=== PATIENT | male | born 1985 | race Caucasian/White ===

== ENCOUNTER 2022-03-16 14:14 | Emergency (ER) | payer MEDICAID, SELFPAY ==
--- NOTE | ~2022-03-16 | CT_ITS ---
EXAMINATION: CT abdomen pelvis w con DATE: 03/16/2022 15:58 INDICATION: Rectal pain and swelling for one day TECHNIQUE: Computed tomography (CT) of the abdomen and pelvis was performed with 100 CC Omnipaque 300 intravenous contrast. Automated exposure control and iterative reconstruction technique were employe d. Exam dose: 526.99 mGy-cm total exam DLP. COMPARISON: None. FINDINGS: Examination is limited by prominent motion of the patient on axial images in the lower abdo men and motion of the patient on images through the lower pelvis and proximal thighs. There is suggestion of a subcutaneous abscess along the inferomedial aspect of the left gluteal fold, measuring up to 1.8 cm depth and 3.4 cm AP dimension. The lung bases are clear. Normal heart size. No pericardial or pleural effusion. 1.6 cm lateral segment left hepatic cyst. The liver, gallbladder, bile ducts, spleen, pancreas and pa ncreatic duct are otherwise unremarkable. Normal morphology of the adrenal glands. No renal mass lesion or scarring. 3 mm nonobstructing right renal calculus. 4 mm nonobstructing left renal calculus. No hydroureteronephrosis. Mild prostate enlargement and calcification. The urinary bladder is unremarkable. Normal caliber of the abdominal aorta. No intraperitoneal or retroperitoneal or pelvic mass lesion or adenopathy or ascites is evident. Moderate degenerative disease at L4-5 and L5-S1. IMPRESSION: Suggestion of a subcutaneous abscess along the inferomedial left gluteal fold; examinati on is limited in this area due to motion 1.6 cm left hepatic cyst Bilateral nonobstructing renal calculi Reviewed, dictated and finalized at [facility]. Reviewed, dictated and finalized at [facility]. IMPRESSION: Suggestion of a subcutaneous abscess along the inferomedial left g luteal fold; examination is limited in this area due to motion 1.6 cm left hepa tic cyst Bilateral nonobstructing renal calculi
[2022-03-16 14:17] VITALS: BP 141/91; PULSE 124; RESP 16; TEMP 36.8; O2SAT 99
--- NOTE | 2022-03-16 14:56 | ED.GENADULT ---
HPI - General Adult General Chief complaint: Skin/Abscess/Foreign Body Stated complaint: repors rectal abscess Time Seen by Provider: 03/16/22 14:23 History of Present Illness HPI narrative: 36-year-old male with no prior history of abscesses presenting to the emergency department for evaluation of rectal swelling that just started yesterday. Patient states 2 days ago he was having some left lower quadrant pain. Patient states yesterday he had onset of rectal pain. Patient describes rectal swelling approximately the size of an egg. Patient does have a history of IV drug use but has not used IV drugs in approximately 1 year. Related Data Allergies Allergy/AdvReac Type Severity Reaction Status Date / Time No Known Allergies Allergy Verified 03/16/22 15:17 Review of Systems Review of Systems: CONSTITUTIONAL: Denies fever, chills, or sweats. EYES: Denies visual changes, redness, or discharge. ENT: Denies rhinorrhea, congestion, sore throat, or otalgia. CARDIOVASCULAR: Denies chest pain, palpitations, or edema. RESPIRATORY: Denies cough or dyspnea. GASTROINTESTINAL: Rectal pain and swelling. See HPI GENITOURINARY: Denies dysuria or hematuria. SKIN: Denies rash or itching. MUSCULOSKELETAL: Denies back pain, joint pain, or myalgia. NEUROLOGIC: Denies headache, numbness, or weakness. Exam Narrative: APPEARANCE: Well appearing, no pain, no distress, well-nourished. HEAD: normocephalic, atraumatic. EYES: PERRLA/EOMI, conjunctivae clear. NOSE: Normal no drainage NECK: Supple. No adenopathy, no masses. RESPIRATORY: Airway patent, respirations nonlabored. Clear to auscultation bilaterally, no rales, rhonchi, wheezing. CARDIOVASCULAR: Regular rate and rhythm without murmurs rubs or gallops. ABDOMINAL: Soft, nontender, nondistended, normal bowel sounds Rectal: Nondraining danish anal abscess MUSCULOSKELETAL: Moves all extremities. Strength/ROM intact, No edema, No calf tenderness. NEURO: Alert. Cranial nerves II through XII intact. SKIN: Warm, dry. Normal Color Course Course Emergency Course: Patient was started on Cipro and Flagyl after the clinical exam. Patient CT did show an abscess?1.8 cm depth and 3.4 cm AP dimension. Abscess was drained as described in the procedure note. Patient did tolerate the procedure well and felt improved. Case was discussed with the surgeon, Dr. Rodriguez recommended not to do antibiotics. Patient to have his packing removed in 1 to 2 days and he should follow-up with surgery in about a week. Vital Signs Vital signs: Vital Signs Temperature 98.2 F 03/16/22 14:17 Pulse Rate 124 H 03/16/22 14:17 Respiratory Rate 16 03/16/22 14:17 Blood Pressure 141/91 H 03/16/22 14:17 Pulse Oximetry 99 03/16/22 14:17 Oxygen Delivery Room Air 03/16/22 14:17 Temperature 98.2 F 03/16/22 14:17 Pulse Rate 104 H 03/16/22 18:06 Respiratory Rate 20 03/16/22 18:06 Blood Pressure 125/76 03/16/22 18:06 Pulse Oximetry 100 03/16/22 18:06 Oxygen Delivery Room Air 03/16/22 14:17 Procedures Abscess I/D danish-rectal: Time of Incision: 16:53 Side (if applicable): left Local Anesthetic: lidocaine 1% Amount of anesthesia used (mL): 3 Technique: incised with #11 blade Irrigation: Yes Packing used?: iodoform I&D Results: Pus and Blood Medical Decision Making Vital Signs Vital Signs: Vital Signs Temperature 98.2 F 03/16/22 14:17 Pulse Rate 124 H 03/16/22 14:17 Respiratory Rate 16 03/16/22 14:17 Blood Pressure 141/91 H 03/16/22 14:17 Pulse Oximetry 99 03/16/22 14:17 Oxygen Delivery Room Air 03/16/22 14:17 Temperature 98.2 F 03/16/22 14:17 Pulse Rate 104 H 03/16/22 18:06 Respiratory Rate 20 03/16/22 18:06 Blood Pressure 125/76 03/16/22 18:06 Pulse Oximetry 100 03/16/22 18:06 Oxygen Delivery Room Air 03/16/22 14:17 Lab Data Lab results reviewed: Yes I reviewed the patient's lab results. Re
[2022-03-16 15:05] LABS: Basophils Absolute Auto 0.1 K/mm3 (0.0-0.1); Basophils Percent Auto 0.7 % (0.2-1.2); Eosinophils Absolute Auto 0.2 K/mm3 (0-0.3); Eosinophils Percent Auto 1.3 % (0-4.4); Hematocrit 47.5 % (42.0-52.0); Hemoglobin 15.7 g/dL (14.0-18.0); Immature Granulocyte Absolute 0.07 K/mm3 (0.00-0.031); Immature Granulocyte Percent A 0.5 % (0-0.5); Lymphocytes Absolute Auto 2.12 K/mm3 (0.9-3.2); Lymphocytes Percent Auto 14.5 % (18.3-44.2); Mean Corpuscular HGB Conc 33.1 g/dl (32-36); Mean Corpuscular Volume 93.7 fl (80-100); Mean Platelet Volume 10.6 fl (7.4-10.4); Monocytes Absolute Auto 1.1 K/mm3 (0.1-0.6); Monocytes Percent Auto 7.5 % (2.6-8.5); Neutrophils Absolute Auto 11.1 K/mm3 (1.3-6.7); Neutrophils Percent Auto 75.5 % (45.5-73.1); Platelet Count Result 296 k/mm3 (150-375); Red Blood Count 5.07 M/mm3 (4.6-6.20); Red Cell Distribution Width 13.2 % (11.5-14.5); White Blood Count 14.7 K/mm3 (4.5-10.0)
[2022-03-16 15:18] LABS: Alanine Aminotransferase 49 U/L (6-50); Albumin Level 4.6 g/dL (3.5-5.1); Alkaline Phosphatase 118 U/L (38-126); Anion Gap 9 mmol/L (8-16); Aspartate Amino Transferase 39 U/L (17-59); Bilirubin,Total 0.8 mg/dL (0.2-1.3); Blood Urea Nitrogen 8 mg/dL (9-20); Calcium 9.2 mg/dL (8.4-10.2); Carbon Dioxide 25 mmol/L (22-30); Chloride 106 mmol/L (98-107); Estimated CRCL calculation 88 ml/min; Estimated Glomerular Filt Rate > 60; Glucose 117 mg/dL (65-110); Lactic Acid Reflex 1.9 mmol/L (0.7-2.0); Potassium 3.6 mmol/L (3.4-5.0); Sodium 140 mmol/L (137-145)
[2022-03-16] MEDS: metroNIDAZOLE 500 MG/ISO 100ML 500 MG/100 ML BAG 100 MG IVPB (15:24)
[2022-03-16 15:26] LABS: Appearance Urine Clear (Clear); Bilirubin Urine 1+ (Negative); Blood Urine Negative (Negative); Color Urine Yellow (Yellow); Glucose Urine UA Negative (Negative); Ketones Urine Negative (Negative); Leukocyte Esterase Ur Negative LEU/UL (Negative); Nitrate Urine Negative (Negative); Protein Urine Negative (Negative); Specific Grav Ur 1.015 (1.001-1.035); pH Urine 6.5 (5.0-9.0)
[2022-03-16] MEDS: HYDROmorphone HCL INJ (*CRX) 1 MG/ML SYR IV PUSH (15:32)
[2022-03-16 15:39] LABS: Bacteria Urine Trace /hpf; Mucus Urine Rare /lpf; RBC Urine 0-2 /hpf (0-2); WBC Urine 0-3 /hpf
[2022-03-16 15:40] LABS: Add Urine Microscopic? YES
[2022-03-16] MEDS: CIPROFLOXACIN 400 MG/D5W 200ML 200 ML 200 MG IVPB (16:26)
[2022-03-16] MEDS: LIDO 1%/EPINEPHRINE 1:100,000 20 ML VIAL 10 ML INFILTRATE (16:49)
[2022-03-16 18:06] VITALS: BP 125/76; PULSE 104; RESP 20; O2SAT 100
== END 2022-03-16 18:09 | disposition home or self-care (01) ==
PROVIDERS: Emergency Provider Emergency Medicine
DX: K61.1 Rectal abscess (principal)
CPT/HCPCS: 36415; 46040; 74177; 80053; 81001; 83605; 85025; 96365; 96366; 96367; 96375; 99284; J0744; J1170; Q9967

== ENCOUNTER 2022-05-28 02:34 | Emergency (ER) | payer MEDICAID, SELFPAY ==
[2022-05-28 02:31] VITALS: BP 121/94; PULSE 89; RESP 16; TEMP 36.2; O2SAT 98
--- NOTE | 2022-05-28 02:55 | PC.NURSE ---
Report received from CARMINA Garg. Assumed care of patient at this time.
[2022-05-28] MEDS: PANTOPRAZOLE 40 MG TABLET PO (03:21)
--- NOTE | 2022-05-28 04:31 | ED.GENADULT ---
HPI - General Adult General Chief complaint: Unspecified Stated complaint: SOB S/P CHOKING EPISODE Time Seen by Provider: 05/28/22 02:41 History of Present Illness HPI narrative: Patient is a 36-year-old male who presents ER with concerns of difficulty swallowing. Reports intermittently he will have an episode where he cannot swallow water and it will get stuck and he feels like he chokes on it and it comes out of his nose. Usually it sporadic and not big deal but its occurred more frequently over the last couple weeks. He was evaluated at [facility] and referred to a GI physician but is not made an appointment yet. He is on no medications. He has no issues with swallowing solid food. Denies fevers or chills or sweats. No difficulty breathing. Related Data Home Medications Medication Instructions Recorded Confirmed buprenorphine 8 mg-naloxone 2 mg 1 film buccal BID 05/28/22 sublingual film (Suboxone) Allergies Allergy/AdvReac Type Severity Reaction Status Date / Time No Known Allergies Allergy Verified 05/28/22 02:44 Review of Systems Constitutional: Constitutional: Denies anorexia, Denies chills and Denies fever(s) ENT: Denies dysphagia, Denies mouth pain and Denies sore throat Gastrointestinal: Gastrointestinal: Denies abdominal pain, Denies nausea and Denies vomiting PMFSH Past Medical History Medical History (Updated 05/28/22 @ 06:46 by Douglas Garces MD) Healthy adult male Surgical History Surgical History (Updated 05/28/22 @ 06:46 by Douglas Garces MD) No pertinent past surgical history Exam Narrative: GENERAL: Well-appearing, well-nourished, and in no acute distress. HEAD: Normocephalic, atraumatic. ENT: Mucous membranes moist. Normal-appearing posterior oropharynx. Tolerating oral secretions without issue. NECK: Supple. CHEST: Clear to auscultation. No respiratory distress. HEART: Regular rate and rhythm. Normal peripheral pulses. EXTREMITIES: Normal range of motion. No edema. NEURO: Alert and oriented x3. Course Course Emergency Course: Patient resting comfortably. Discussed need for follow-up with GI. Recommend PPI for home. Discussed possibility of esophageal dysmotility and eosinophilic esophagitis. Also discussed reflux esophagitis. Patient verbalized understanding. Unlikely stricture given symptoms. Vital Signs Vital signs: Vital Signs Temperature 97.2 F L 05/28/22 02:31 Pulse Rate 89 05/28/22 02:31 Respiratory Rate 16 05/28/22 02:31 Blood Pressure 121/94 H 05/28/22 02:31 Pulse Oximetry 98 05/28/22 02:31 Oxygen Delivery Room Air 05/28/22 02:31 Temperature 97.2 F L 05/28/22 02:31 Pulse Rate 89 05/28/22 02:31 Respiratory Rate 16 05/28/22 02:31 Blood Pressure 121/94 H 05/28/22 02:31 Pulse Oximetry 98 05/28/22 02:31 Oxygen Delivery Room Air 05/28/22 02:31 Medical Decision Making Vital Signs Vital Signs: Vital Signs Temperature 97.2 F L 05/28/22 02:31 Pulse Rate 89 05/28/22 02:31 Respiratory Rate 16 05/28/22 02:31 Blood Pressure 121/94 H 05/28/22 02:31 Pulse Oximetry 98 05/28/22 02:31 Oxygen Delivery Room Air 05/28/22 02:31 Temperature 97.2 F L 05/28/22 02:31 Pulse Rate 89 05/28/22 02:31 Respiratory Rate 16 05/28/22 02:31 Blood Pressure 121/94 H 05/28/22 02:31 Pulse Oximetry 98 05/28/22 02:31 Oxygen Delivery Room Air 05/28/22 02:31 Discharge Plan Discharge Clinical Impression: Dysphagia Patient Disposition: Home, Self-Care Condition: Stable Instructions: Allergic Esophagitis (ED), Dysphagia (ED) Additional Instructions: Follow-up with the GI doctor that was recommended to [facility]. If you cannot get in establish care with a primary care physician so you may be referred 1. In the meantime please take Protonix to help with any irritation of the esophagus that may be contributing to your difficulty swallowing. Prescriptions: New
== END 2022-05-28 04:48 | disposition home or self-care (01) ==
PROVIDERS: Emergency Provider Emergency Medicine
DX: R13.10 Dysphagia, unspecified (principal)
CPT/HCPCS: 99283; A9270

== ENCOUNTER 2022-07-06 10:25 | Emergency (ER) | payer MEDICAID, SELFPAY ==
--- NOTE | ~2022-07-06 | US_ITS ---
EXAMINATION: US venous doppler LE RT DATE: 07/06/2022 13:39 INDICATION: Right lower limb pain. TECHNIQUE: Grayscale ultrasound images without and with compression and Doppler ultrasound images of the right lower extremity veins were obtained. COMPARISON: None. FINDINGS: The visualized portions of right common femoral vein, profunda (deep) femoral vein, femoral vein, pop liteal vein, peroneal veins, posterior tibial veins, and greater saphenous vein outflow are patent. IMPRESSION: 1. No deep venous thrombosis. Reviewed, dictated and finalized at [facility]. T EXPERIENCE REPRESENTATIVE
[2022-07-06 10:53] VITALS: BP 132/89; PULSE 106; RESP 18; TEMP 37.2; O2SAT 97
--- NOTE | 2022-07-06 12:59 | ED.GENADULT ---
HPI - General Adult General Chief complaint: Extremity Problem,Nontraumatic Stated complaint: RLE pain and swelling x 4 days Time Seen by Provider: 07/06/22 11:41 History of Present Illness HPI narrative: 36-year-old male history of IV drug use presents to the emergency for evaluation of atraumatic right leg pain. Patient states he has been experiencing pain to his right gibbs and calf that radiates up into his right thigh. States the pain is worse with ambulation. Denies using IV drugs in his right lower extremity. Related Data Home Medications Medication Instructions Recorded Confirmed buprenorphine 8 mg-naloxone 2 mg 1 film buccal BID 05/28/22 sublingual film (Suboxone) Allergies Allergy/AdvReac Type Severity Reaction Status Date / Time No Known Allergies Allergy Verified 07/06/22 11:14 Review of Systems Review of Systems: CONSTITUTIONAL: Denies fever, chills, or sweats. EYES: Denies visual changes, redness, or discharge. ENT: Denies rhinorrhea, congestion, sore throat, or otalgia. CARDIOVASCULAR: Denies chest pain, palpitations, or edema. RESPIRATORY: Denies cough or dyspnea. GASTROINTESTINAL: Denies abdominal pain, nausea, vomiting, or diarrhea. GENITOURINARY: Denies dysuria or hematuria. SKIN: Denies rash or itching. MUSCULOSKELETAL: Right leg pain NEUROLOGIC: Denies headache, numbness, dizziness, or weakness. PSYCHIATRIC: Denies anxiety or depression. [facility] Past Medical History Medical History Healthy adult male Surgical History Surgical History No pertinent past surgical history Exam Narrative: GENERAL: Well-appearing, well-nourished, no physical limitations, and in no acute distress. HEAD: Normocephalic, atraumatic. EYES: Conjunctivae normal, PERRLA and EOMI. CHEST: Clear to auscultation. No respiratory distress. No wheezes rales or rhonchi. HEART: Regular rate and rhythm. No murmur heard. Normal peripheral pulses. BACK: No lumbar tenderness, step-offs, bony abnormality; FROM EXTREMITIES: RLE: Tenderness to right thigh, right calf. Negative Homans' sign. No signs of swelling or erythema. Full range of motion of ankle, knee and hip joints. No bony abnormality. Minimal erythema around the ankle and lower calf SKIN: Warm, dry, no rash. No noted wounds NEURO: No focal deficits. Alert and oriented x3. MAEW. CN's II-XI intact bilaterally, antalgic gait PSYCH: Cooperative. Normal mood and affect. Course Vital Signs Vital signs: Vital Signs Temperature 37.2 C 07/06/22 10:53 Pulse Rate 106 H 07/06/22 10:53 Respiratory Rate 18 07/06/22 10:53 Blood Pressure 132/89 07/06/22 10:53 Pulse Oximetry 97 07/06/22 10:53 Oxygen Delivery Room Air 07/06/22 10:53 Temperature 37.2 C 07/06/22 10:53 Pulse Rate 99 07/06/22 13:04 Respiratory Rate 15 07/06/22 13:04 Blood Pressure 133/87 07/06/22 13:04 Pulse Oximetry 100 07/06/22 13:04 Oxygen Delivery Room Air 07/06/22 10:53 Medical Decision Making [facility] Narrative Medical decision making narrative: 36-year-old male presented with right leg pain for 3 days. Ultrasound showed no signs of DVT. CBC showed a slightly elevated WBC. Given the fact the patient had no injury or known trauma, patient is likely experiencing early cellulitis so IV drug use. Vital Signs Vital Signs: Vital Signs Temperature 37.2 C 07/06/22 10:53 Pulse Rate 106 H 07/06/22 10:53 Respiratory Rate 18 07/06/22 10:53 Blood Pressure 132/89 07/06/22 10:53 Pulse Oximetry 97 07/06/22 10:53 Oxygen Delivery Room Air 07/06/22 10:53 Temperature 37.2 C 07/06/22 10:53 Pulse Rate 99 07/06/22 13:04 Respiratory Rate 15 07/06/22 13:04 Blood Pressure 133/87 07/06/22 13:04 Pulse Oximetry 100 07/06/22 13:04 Oxygen Delivery Room Air 07/06/22 10:53 Lab Data Result diagrams: 07/06/22 12:55
[2022-07-06 13:04] VITALS: BP 133/87; PULSE 99; RESP 15; O2SAT 100
[2022-07-06 13:07] LABS: Basophils Absolute Auto 0.1 K/mm3 (0.0-0.1); Basophils Percent Auto 0.6 % (0.2-1.2); Eosinophils Absolute Auto 0.2 K/mm3 (0-0.3); Eosinophils Percent Auto 1.3 % (0-4.4); Hematocrit 49.5 % (42.0-52.0); Immature Granulocyte Absolute 0.09 K/mm3 (0.00-0.031); Immature Granulocyte Percent A 0.7 % (0-0.5); Mean Corpuscular HGB Conc 32.3 g/dl (32-36); Mean Corpuscular Hemoglobin 30.3 pg (26-34); Mean Corpuscular Volume 93.8 fl (80-100); Mean Platelet Volume 9.9 fl (7.4-10.4); Monocytes Absolute Auto 0.9 K/mm3 (0.1-0.6); Monocytes Percent Auto 6.9 % (2.6-8.5); Neutrophils Absolute Auto 8.8 K/mm3 (1.3-6.7); Neutrophils Percent Auto 67.5 % (45.5-73.1); Platelet Count Result 342 k/mm3 (150-375); Red Blood Count 5.28 M/mm3 (4.6-6.20); Red Cell Distribution Width 14.2 % (11.5-14.5)
[2022-07-06 13:21] LABS: Alanine Aminotransferase 41 U/L (6-50); Albumin Level 4.5 g/dL (3.5-5.1); Alkaline Phosphatase 116 U/L (38-126); Anion Gap 15 mmol/L (8-16); Aspartate Amino Transferase 36 U/L (17-59); Bilirubin,Total 0.6 mg/dL (0.2-1.3); Blood Urea Nitrogen 14 mg/dL (9-20); Calcium 9.2 mg/dL (8.4-10.2); Carbon Dioxide 25 mmol/L (22-30); Chloride 102 mmol/L (98-107); Estimated CRCL calculation 70 ml/min; Estimated Glomerular Filt Rate > 60; Glucose 103 mg/dL (65-110); Potassium 3.8 mmol/L (3.4-5.0); Sodium 142 mmol/L (137-145)
== END 2022-07-06 14:45 | disposition home or self-care (01) ==
PROVIDERS: Emergency Provider Nurse Practitioner Family
DX: L03.115 Cellulitis of right lower limb (principal)
CPT/HCPCS: 36415; 80053; 85025; 93971; 99284